=== PATIENT | male | born 1980 | race Caucasian/White ===

== ENCOUNTER 2016-11-08 00:12 | Emergency (ER) | payer SELFPAY ==
[~2016-11-08 00:12] MED LIST: AMOXICILLIN500 M1 PO; AMOXICILLIN875 MG PO; BP MED; BROMFED DM COU118 ML PO; CIPRO PO; CLARITHROMYCIN500 MG PO; FLEXERIL PO; FLEXERIL10 MG PO; FLOMAX0.4 M1 DOB; FLOMAX0.4 M1 PO; HEARTBURN MED; IBUPROFEN600 MG PO; IBUPROFEN800 MG PO; LISINOPRIL PO; LORTAB 10-5001 EACH PO; LORTAB 5/500 TA1 TA1 PO; MIRALAX17 GM PO; NO MEDICATIONS; NORCO 5/325 TAB1 TAB PO; OMEPRAZOLE20 M1 PO; OMEPRAZOLE40 M1 PO; PERCOCET5/325 PO; PHENERGAN PO; PHENERGAN25 M1 PO; PRILOSEC; PRILOSEC PO; PRILOSEC20 M1 PO; PRILOSEC20 MG DOB; PRINIVIL10 MG PO; PROTONIX PO; ROBAXIN500 MG; TAMIFLU75 MG PO; TYLENOL #3 PO; TYLOX 5/500 CAP1 CAP PO; VICODIN 5/1 TAB 5/50 PO; VOLTAREN75 MG PO; WELLBUTRIN100 MG; XYLOCAINE 1% RC; ZESTRIL10 MG PO; ZOFRAN ODT4 MG PO; ZOFRANODT PO
== END 2016-11-08 03:00 | disposition home or self-care (01) ==
LOC: SED 00:12
DX: S80.812A Abrasion, left lower leg, initial encounter (principal); K21.9 Gastro-esophageal reflux disease without esophagitis; Z87.442 Personal history of urinary calculi; F17.200 Nicotine dependence, unspecified, uncomplicated; Z88.8 Allergy status to other drugs, medicaments and biological substances; W22.8XXA Striking against or struck by other objects, initial encounter; Y92.69 Other specified industrial and construction area as the place of occurrence of the external cause
CPT/HCPCS: 99283